=== PATIENT | female | born 1940 | race Caucasian/White ===

== ENCOUNTER 2017-10-30 10:36 | Day surgery (SDC) | payer MEDICARE ==
[~2017-10-30 10:36] MED LIST: Buffered Lidocaine 0.9% SYRIN* 5 ML/SYR SYRINGE INTRADERM ONE; Famotidine IV* 10 MG/ML 2 ML (20 mg) IV ONE
[2017-10-30] MEDS ORDERED: Famotidine IV* 10 MG/ML 2 ML (20 mg) ONE (10:49)
[2017-10-30] MEDS ORDERED: Clindamycin 900 MG IVPREMIX(* 900 MG/50 ML SDV IV ONE (10:49)
[2017-10-30] MEDS ORDERED: Buffered Lidocaine 0.9% SYRIN* 5 ML/SYR SYRINGE ONE (10:50)
[2017-10-30] MEDS ORDERED: Lidocaine 2% PF* 10 ML AMP ONE (12:29)
[2017-10-30] MEDS ORDERED: Midazolam* 1 MG/ML 2 ML VIAL (2 MG) ONE (12:37)
[2017-10-30] MEDS ORDERED: fentaNYL* 50 MCG/ML 2 ML VIAL (100 MCG VIAL) ONE (12:37)
[2017-10-30] MEDS ORDERED: Propofol* 10 MG/ML 20 ML BTL IV PUSH ONE (12:37)
[2017-10-30] MEDS ORDERED: Lidocaine 2% PF * 5 ML VIAL ONE (12:37)
[2017-10-30] MEDS ORDERED: Ketorolac INJ* 30 MG/ML 1 ML VIAL ONE (12:38)
[2017-10-30] MEDS ORDERED: Dexamethasone IV* 4 MG/ML 1 ML (4 MG) ONE (12:38)
[2017-10-30] MEDS ORDERED: Ondansetron INJ* 2 MG/ML VIAL ONE (12:38)
[2017-10-30] MEDS ORDERED: Acetaminophen TAB* 325 MG PO PRN (13:45)
[2017-10-30] MEDS ORDERED: DiMENhydriNATE IV* 50 MG/ML VIAL IV PUSH PRN (13:45)
[2017-10-30 14:46] VITALS: BP 147/73
--- NOTE | 2017-10-31 07:13 | OP ---
DATE OF OPERATION: 10/30/17 - [facility] DATE OF : 38 SURGEON: Luis F Avendaño MD PIANO REGULATOR: Berenice Fairbanks PA-C ANESTHESIOLOGIST: Paulette Buckley MD ANESTHESIA: Monitored anesthesia care. PRE-OP DIAGNOSIS: Dorsal subluxation and spasm of the right first metatarsophalangeal joint. POST-OP DIAGNOSIS: Dorsal subluxation and spasm of the right first metatarsophalangeal joint. OPERATIVE PROCEDURE: lengthening and first MTP fusion, right foot. DESCRIPTION OF PROCEDURE: The patient was taken to the operating room where ankle Esmarch was applied. We placed a block around the midfoot with 2% lidocaine. We made a longitudinal incision over the dorsomedial joint raising a mediolateral flap. We created Z lengthening of the extensor tendon, approximately 4 cm in length. We then prepared the joint for arthrodesis using a small power bur. We pinned this obliquely using a 4-0 cannulated screw and then a dorsal F3 plate, which was a Y-shaped rigid plate. The extensor tendon was way too spastic and contracted to repair longitudinally , so the distal stump was sewn down to the plate using 3-0 Vicryl sutures. This held the IP joint in passive extension. We then irrigated thoroughly closing with dorsal 3-0 Vicryl and 4-0 nylon sutures and a compression dressing applied. [id number]/[facility] #: [id number] MTDD
--- NOTE | 2017-10-31 09:48 | RAD ---
INDICATION: right first MPJ fusion, hallux varus acquired of the right foot COMPARISONS: September 06, 2017 TECHNIQUE: Fluoroscopy was provided for a surgical procedure. Total fluoroscopy time is: 4.1 seconds FINDINGS: Spot images demonstrate fusion across the first MTP joint IMPRESSION: FLUOROSCOPY WAS PROVIDED FOR A SURGICAL PROCEDURE CPT II Codes: 6045F
== END 2017-10-30 15:30 | disposition home or self-care (01) ==
LOC: OR 10:36
PROVIDERS: ATTEND Orthopaedic Surgery
DX: S93.141A Subluxation of metatarsophalangeal joint of right great toe, initial encounter (principal); R25.2 Cramp and spasm; X58.XXXA Exposure to other specified factors, initial encounter; Y92.9 Unspecified place or not applicable; I34.1 Nonrheumatic mitral (valve) prolapse; J44.9 Chronic obstructive pulmonary disease, unspecified; E78.5 Hyperlipidemia, unspecified; M79.7 Fibromyalgia; Z86.73 Personal history of transient ischemic attack (TIA), and cerebral infarction without residual deficits; Z88.1 Allergy status to other antibiotic agents; Z88.0 Allergy status to penicillin; Z87.891 Personal history of nicotine dependence; M20.5X1 Other deformities of toe(s) (acquired), right foot; Z98.890 Other specified postprocedural states
CPT/HCPCS: 76000; C1713; C1776; J1100; J1885; J2001; J2250; J2405; J2704; J3010

== ENCOUNTER 2019-10-21 08:57 | Day surgery (SDC) | payer MEDICARE ==
--- NOTE | 2019-10-07 11:11 | HP ---
PREOPERATIVE HISTORY AND PHYSICAL: DATE OF ADMISSION: 10/21/19 ATTENDING PHYSICIAN: Dr. Luis F Avendaño.* (DICTATED BY VIJAY GRIFFITHS) CHIEF COMPLAINT: Right fourth toe pain. HISTORY OF PRESENT ILLNESS: The patient is a 78-year-old female known to Dr. Avendaño for previous toe issues who presents with pain and deformity in the right fourth toe that has not resolved with orthotics or other manipulative devices to move the toe out of the way of the other digits. She starting to develop sores on the digit and would like surgical intervention at this time due to her continued discomfort and the increasing deformity. PAST MEDICAL HISTORY: Idiopathic urticaria, COPD, TIA, hyperlipidemia, carotid artery stenosis, aortic valve calcification. PAST SURGICAL HISTORY: Right fifth digit tendon release, cholecystectomy, carpal tunnel release bilaterally, right knee replacement, left knee replacement , sigmoid colectomy with anastomosis, umbilical hernia repair, tubal ligation, multiple shoulder surgeries. She denies anesthetic complications with any of these procedures. MEDICATIONS: 1. Atenolol 25 mg 1 tab p.o. daily. 2. Clonidine HCl 0.1 mg p.o. p.r.n. 3. Cyclobenzaprine HCl 5 mg p.o. p.r.n. 4. Cyproheptadine HCl 4 mg p.o. daily. 5. Fenofibrate 160 mg p.o. daily. 6. Furosemide 40 mg p.o. daily. 7. Adult multivitamin p.o. daily. 8. Omeprazole 20 mg p.o. daily. 9. Stool softener 100 mg p.o. daily. 10. Temazepam 15 mg p.o. p.r.n. ALLERGIES: CEFZIL, AZITHROMYCIN, PENICILLIN, and TAPE. FAMILY HISTORY: Positive for diabetes and heart disease. SOCIAL HISTORY: She lives with her son. She is retired. She is a former smoker, who quit in 2007. She rarely consumes alcohol and does not use recreational drugs. REVIEW OF SYSTEMS: Fourteen systems were reviewed with the patient today. They are negative for fevers, chills, nausea, vomiting, shortness of breath with exertion or chest pain with exertion. All other systems are negative. PHYSICAL EXAMINATION GENERAL: She is a well-developed, well-nourished female, seated on exam table, in no distress, with appropriate affect. VITAL SIGNS: Height 66 inches, weight 180, pulse 64, blood pressure 112/66. HEENT: Normocephalic, atraumatic. Hearing and vision are grossly intact with extraocular movements intact. NECK: Trachea is midline and symmetrical. CHEST: No wheezes, rales, or rhonchi appreciated. Lung sounds clear. CARDIO: She has a regular rate and rhythm with normal S1, S2. Mild murmur is appreciated. ABDOMEN: Nondistended, nontender. Bowel sounds present. MUSCULOSKELETAL: Right lower extremity: Skin is dry and intact without open wounds or abrasions. The digits of the foot are malaligned with the second, third, and fourth toes significantly abducted and overlapping without skin breakdown. There is tenderness to palpation of the fourth digit and brisk capillary refill with 2+ dorsalis pedis pulse. IMAGING: Multiple views of the foot are obtained and reviewed in the office today and show no acute bony abnormalities but severe valgus deformity of the second, third, and fourth digits. ASSESSMENT: Right fourth toe valgus deformity. PLAN: Right fourth toe amputation with Dr. Avendaño. Dr. Avendaño discussed the operative course and postoperative course with the patient and she would like to proceed. She will follow up after surgery and can call with questions or concerns otherwise. VIJAY GRIFFITHS [id number]/[facility] #: [id number] MTDD
[~2019-10-21 08:57] MED LIST changes: +Acetaminophen TAB* 325 MG PO ONE; -Buffered Lidocaine 0.9% SYRIN* 5 ML/SYR SYRINGE INTRADERM ONE; +Buffered Lidocaine 1% SYRIN* 1 ML/SYRINGE INTRADERM ONE; -Famotidine IV* 10 MG/ML 2 ML (20 mg) IV ONE; +Lactated Ringers 1000 ML Bag* 1,000 ML IV SCH
[2019-10-21] MEDS ORDERED: ceFAZolin 2 GM PREMIX in ORs 0 GM/0 ML BAG ONE (09:53)
[2019-10-21] MEDS ORDERED: Midazolam* 1 MG/ML 2 ML VIAL (2 MG) ONE (11:02)
[2019-10-21] MEDS ORDERED: Propofol* 500 MG/50 ML BTL ONE (11:36)
[2019-10-21] MEDS ORDERED: Clindamycin 900 MG/D5W BAG(*) 900 MG/50 ML BAG IVPB ONE (11:46)
[2019-10-21] MEDS ORDERED: Lidocaine 2% PF * 5 ML VIAL ONE (11:57)
[2019-10-21] MEDS ORDERED: Bupivacaine 0.5%* 50 ML MDV VIAL ONE (11:57)
[2019-10-21] MEDS ORDERED: PROCHLORPERAZINE INJ 5 MG/ML 2 ML VIAL IV PRN (12:36)
[2019-10-21] MEDS ORDERED: Naloxone* 0.4 MG/ML 1 ML VIAL IV PRN (12:36)
[2019-10-21] MEDS ORDERED: Acetaminophen TAB* 325 MG PO PRN (12:36)
[2019-10-21] MEDS ORDERED: diPHENhydraMINE IV* 50 MG/ML 1 ml VIAL (BENADRYL) IV PRN (12:36)
[2019-10-21] MEDS ORDERED: Ondansetron INJ* 2 MG/ML VIAL IV PRN (12:36)
[2019-10-21] MEDS ORDERED: oxyCODONE TAB* 5 MG TAB PO PRN (12:36)
[2019-10-21 12:38] VITALS: BP 124/60
--- NOTE | 2019-10-21 20:49 | OP ---
DATE OF OPERATION: 10/21/19 - [facility] DATE OF : 38. ATTENDING SURGEON: Luis F Avendaño M.D. [employer] OPERATOR: VIJAY Moses. PRE-OP DIAGNOSIS: Superior overlapping of third and fifth toes, right forefoot. POST-OP DIAGNOSIS: Superior overlapping of third and fifth toes, right forefoot. OPERATIVE PROCEDURE: Amputation right fourth toe. DESCRIPTION OF PROCEDURE: The patient was taken to the operating room, where ankle Esmarch was performed with a local anesthetic. We made a transverse elliptical incision at the mid portion of the proximal phalanx of the fourth toe. We dissected proximally to disarticulate the fourth toe at the MTP joint level. We irrigated thoroughly, dropped the ankle Esmarch. Minimal bleeding was noted. We closed with 2-0 Monocryl sutures and then nylon for the skin and a compression dressing was applied. [id number]/[facility] #: [id number] MTDD
== END 2019-10-21 13:30 | disposition home or self-care (01) ==
LOC: OR 08:57
PROVIDERS: ATTEND Orthopaedic Surgery
DX: M20.5X1 Other deformities of toe(s) (acquired), right foot (principal); J44.9 Chronic obstructive pulmonary disease, unspecified; E78.5 Hyperlipidemia, unspecified; Z86.73 Personal history of transient ischemic attack (TIA), and cerebral infarction without residual deficits; I65.21 Occlusion and stenosis of right carotid artery; Z87.891 Personal history of nicotine dependence; I49.1 Atrial premature depolarization
CPT/HCPCS: J0690; J2250; J2704; J3490